=== PATIENT | male | born 1990 | race Caucasian/White ===

== ENCOUNTER 2017-06-11 12:27 | Emergency (ER) | payer OTHER, SELFPAY ==
[2017-06-11 12:28] VITALS: BP 157/95; PULSE 57; RESP 18; TEMP 36.6; O2SAT 98
[2017-06-11 12:29] VITALS: BP 157/95; PULSE 57; RESP 18; TEMP 36.6; O2SAT 99; BMI 24.8
--- NOTE | 2017-06-11 14:01 | ED.DCSUM_ITS ---
- ER Visit Summary Date of Service: 06/11/17 Chief Complaint: Abdominal pain History of Present Illness: The patient is a 26 M who presents with abdominal pain. About 2 hours prior to presentation he developed stabbing epigastric nonradiating abdominal pain. There was no associated fever nausea vomiting diarrhea constipation. At the time of history his symptoms have actually completely resolved and he has no complaints. Physical Examination: Afebrile vitals are stable Moist mucous membranes Heart regular rate and rhythm Lungs are clear Abdomen soft nontender nondistended Test Results: Deferred Emergency Department Course and Treatment: The patient's symptoms had completely resolved on presentation here. He currently has no complaints. He has a benign abdominal exam with no reproducible tenderness no guarding no rebound. We discussed evaluating here with laboratory studies. The patient would prefer just to follow-up as an outpatient. He understands should he develop new or worsening symptoms, recurrent pain, fever, vomiting he should return for reevaluation. All questions answered at bedside and the patient was discharged. Treatment Plan: [] Disposition: Discharge Impression: Epigastric abdominal pain, resolved This note was generated with [employer] dictation software. It may contain incorrect words, spelling, and punctuation that were not noted in review of the chart prior to signing ED Disposition - Plan for ED Patient: Chief Complaint: Abd Pain Referrals: Baltazar Salomon MD [Primary Care Provider] -
--- NOTE | 2017-06-11 14:01 | ED.DEP ---
ED Disposition - Plan for ED Patient: Chief Complaint: Abd Pain Instructions: ED Abdominal Pain Unkn Cause Male Referrals: Baltazar Salomon MD [Primary Care Provider] -
[2017-06-11 14:41] VITALS: BP 127/81; PULSE 64; RESP 15; O2SAT 98
== END 2017-06-11 14:42 | disposition home or self-care (01) ==
LOC: ED 14:35
PROVIDERS: Emergency Provider Emergency Medicine; Family Provider Family Medicine; PCP Family Medicine
DX: R10.13 Epigastric pain (principal)
CPT/HCPCS: 99282